=== PATIENT | female | born 1985 | race Caucasian/White ===

== ENCOUNTER → 2017-01-15 | Outpatient (REF) | payer OTHER | LOC: M LAB REF 10:22 | PROVIDERS: ATTEND Physician Assistant | DX: R30.0 Dysuria (principal) ==

== ENCOUNTER 2017-07-06 11:43 | Emergency (ER) | payer OTHER ==
[2017-07-06] MEDS: predniSONE 20 MG TAB PO (14:08)
== END 2017-07-06 14:15 | disposition home or self-care (01) ==
LOC: M ED 11:43
DX: M25.50 Pain in unspecified joint (principal); M06.9 Rheumatoid arthritis, unspecified; L94.9 Localized connective tissue disorder, unspecified; F17.200 Nicotine dependence, unspecified, uncomplicated; J30.1 Allergic rhinitis due to pollen; J30.89 Other allergic rhinitis
CPT/HCPCS: 99283

== ENCOUNTER 2017-08-19 17:06 | Emergency (ER) | payer OTHER, SELFPAY ==
[2017-08-19] MEDS: AUGMENTIN 875 MG TAB PO ×2 (17:35)
[2017-08-19] MEDS: ADACEL/BOOSTRIX VACCINE (DIPHTH/PERTUSS/ACELL/TETANUS)0.5ML SYR (90715) IM ×2 (17:44)
== END 2017-08-19 17:57 | disposition home or self-care (01) ==
LOC: M ED 17:06
DX: S90.871A Other superficial bite of right foot, initial encounter (principal); W54.0XXA Bitten by dog, initial encounter; Y92.009 Unspecified place in unspecified non-institutional (private) residence as the place of occurrence of the external cause; F17.210 Nicotine dependence, cigarettes, uncomplicated; Z91.048 Other nonmedicinal substance allergy status
CPT/HCPCS: 90715

== ENCOUNTER 2017-09-14 06:23 | Emergency (ER) | payer MEDICAID, SELFPAY, OTHER ==
[2017-09-14] MEDS: KETOROLAC 60 MG/2 ML VIAL (J1885) IM ×2 (07:06)
== END 2017-09-14 07:29 | disposition home or self-care (01) ==
LOC: M ED 06:23
DX: M25.50 Pain in unspecified joint (principal); J30.2 Other seasonal allergic rhinitis; M06.9 Rheumatoid arthritis, unspecified; J30.89 Other allergic rhinitis; Z72.0 Tobacco use
CPT/HCPCS: J1885

== ENCOUNTER → 2017-10-17 | Outpatient (REF) | payer MEDICAID, SELFPAY ==
[2017-10-17 18:36] LABS: BASO # 0.1 10^3/uL (0.0-0.2); BASO % 0.8 % (0.0-1.0); EOS # 0.2 10^3/uL (0.0-0.50); EOS % 2.1 % (0.0-3.0); HEMATOCRIT 43.1 % (36.0-47.0); HEMOGLOBIN 14.2 g/dl (12.0-15.5); IMMATURE GRANULOCYTE % 0.2 % (0-3.0); LYMPH # 2.4 10^3/uL (1.5-4.5); LYMPH % 29.3 % (24.0-44.0); MEAN CORPUSCULAR HEMOGLOBIN 29.8 pg (27.0-33.0); MEAN CORPUSCULAR HGB CONC 32.9 g/dl (32.0-36.5); MEAN CORPUSCULAR VOLUME 90.5 fl (80.0-96.0); MONO # 0.6 10^3/uL (0.0-0.8); MONO % 7.1 % (0.0-5.0); NEUTROPHILS % 60.5 % (36.0-66.0); PLATELET COUNT, AUTOMATED 292 10^3/uL (150-450); RED BLOOD COUNT 4.76 10^6/uL (4.00-5.40); RED CELL DISTRIBUTION WIDTH 13.4 % (11.5-14.5); WHITE BLOOD COUNT 8.3 10^3/uL (4.0-10.0)
[2017-10-17 18:52] LABS: ALBUMIN/GLOBULIN RATIO 1.08 (1.00-1.93); ALKALINE PHOSPHATASE 64 U/L (45-117); ALT/SGPT 23 U/L (12-78); ANION GAP 5 MEQ/L (8-16); AST/SGOT 10 U/L (7-37); BILIRUBIN,TOTAL 1.2 MG/DL (0.2-1.0); BLOOD UREA NITROGEN 8 MG/DL (7-18); C REACTIVE PROTEIN QUANTITATIV 1.17 MG/DL (0.00-0.30); CALCIUM LEVEL 8.6 MG/DL (8.5-10.1); CARBON DIOXIDE LEVEL 30 MEQ/L (21-32); CHLORIDE LEVEL 105 MEQ/L (98-107); CREATININE FOR GFR 0.98 MG/DL (0.55-1.30); GLOMERULAR FILTRATION RATE > 60.0 (>60); GLUCOSE, FASTING 88 MG/DL (70-100); POTASSIUM SERUM 4.1 MEQ/L (3.5-5.1); SODIUM LEVEL 140 MEQ/L (136-145); TOTAL PROTEIN 7.7 GM/DL (6.4-8.2)
[2017-10-17 20:48] LABS: ERYTHROCYTE SEDIMENTATION RATE 10 mm/hr (0-20)
== END ==
LOC: M LAB REF 10:15
DX: M06.049 Rheumatoid arthritis without rheumatoid factor, unspecified hand (principal)
CPT/HCPCS: 84443

== ENCOUNTER 2017-11-27 13:53 | Emergency (ER) | payer OTHER, MEDICAID ==
[2017-11-27] MEDS: NS 1,000 ML IV (15:36)
[2017-11-27] MEDS: methylPREDNISolone INJ 125 MG/2 ML VIAL (J2930) IV (15:36)
[2017-11-27] MEDS: KETOROLAC 30 MG/ML VIAL (J1885) IV (15:37)
[2017-11-27] MEDS: MORPHINE 4 MG/ML 1ML VIAL/SYRINGE (J2270) IV (16:39)
== END 2017-11-27 17:55 | disposition home or self-care (01) ==
LOC: M ED 13:53
DX: M25.551 Pain in right hip (principal); M25.552 Pain in left hip; M25.561 Pain in right knee; M25.562 Pain in left knee; F17.200 Nicotine dependence, unspecified, uncomplicated; M06.9 Rheumatoid arthritis, unspecified
CPT/HCPCS: J2270

== ENCOUNTER 2017-11-29 20:49 | Emergency (ER) | payer OTHER ==
[2017-11-29 21:18] LABS: CONTROL LINE UCG INT CTR LINE PRESENT; URINE PREG TEST NEGATIVE (NEGATIVE)
[2017-11-29 21:27] LABS: KETONE, URINE AUTO RFX NEGATIVE (NEGATIVE); MUCUS, URINE RFX SMALL (NEGATIVE); NITRITE, URINE AUTO RFX NEGATIVE (NEGATIVE); RBC, URINE AUTO RFX 68 /HPF (0-3); SPECIFIC GRAVITY UR AUTO RFX 1.019 (1.002-1.035); SQUAM EPITHELIAL CELL UR AURFX 3 /HPF (0-6)
[2017-11-29] MEDS: NORCO, ANEXSIA 5/325MG TABLET (HYDROcodone/ACETAMINOPHEN) PO (21:27)
[2017-11-29 21:31] LABS: LEUKOCYTE ESTERASE UR AUTO RFX 3+ (NEGATIVE); WBC, URINE AUTO RFX TNTC /HPF (0-3)
[2017-11-29] MEDS: CIPROFLOXACIN 500 MG TAB PO (22:14)
[2017-11-29] MEDS: PHENAZOPYRIDINE 100 MG TAB PO (22:14)
[2017-11-29 23:13] LABS: CHLAMYDIA DNA AMPLIFICATION NEGATIVE (NEGATIVE); GC DNA AMPLIFICATION NEGATIVE (NEGATIVE)
== END 2017-11-29 22:29 | disposition home or self-care (01) ==
LOC: M ED 20:49
DX: N30.00 Acute cystitis without hematuria (principal); F31.9 Bipolar disorder, unspecified; M06.9 Rheumatoid arthritis, unspecified; F17.210 Nicotine dependence, cigarettes, uncomplicated; Z98.890 Other specified postprocedural states; Z91.048 Other nonmedicinal substance allergy status; Z79.899 Other long term (current) drug therapy
CPT/HCPCS: 84703

== ENCOUNTER 2018-03-01 13:31 | Emergency (ER) | payer OTHER ==
[2018-03-01] MEDS: NORCO, ANEXSIA 5/325MG TABLET (HYDROcodone/ACETAMINOPHEN) PO ×2 (14:00→16:09)
[2018-03-01] MEDS: NAPROXEN 250 MG TAB PO (14:01)
[2018-03-01 14:20] LABS: BASO # 0.1 10^3/uL (0.0-0.2); BASO % 0.8 % (0.0-1.0); EOS # 0.2 10^3/uL (0.0-0.50); EOS % 1.6 % (0.0-3.0); HEMATOCRIT 47.2 % (36.0-47.0); HEMOGLOBIN 15.6 g/dl (12.0-15.5); IMMATURE GRANULOCYTE % 0.2 % (0-3.0); LYMPH # 2.7 10^3/uL (1.5-4.5); LYMPH % 25.9 % (24.0-44.0); MEAN CORPUSCULAR HEMOGLOBIN 29.1 pg (27.0-33.0); MEAN CORPUSCULAR HGB CONC 33.1 g/dl (32.0-36.5); MEAN CORPUSCULAR VOLUME 87.9 fl (80.0-96.0); MONO # 0.6 10^3/uL (0.0-0.8); MONO % 5.6 % (0.0-5.0); NEUTROPHILS # 6.9 10^3/uL (1.8-7.7); NEUTROPHILS % 65.9 % (36.0-66.0); RED BLOOD COUNT 5.37 10^6/uL (4.00-5.40); RED CELL DISTRIBUTION WIDTH 13.4 % (11.5-14.5); WHITE BLOOD COUNT 10.5 10^3/uL (4.0-10.0)
[2018-03-01 14:41] LABS: ERYTHROCYTE SEDIMENTATION RATE 6 mm/hr (0-20)
[2018-03-01 14:57] LABS: ANION GAP 7 MEQ/L (8-16); BLOOD UREA NITROGEN 10 MG/DL (7-18); C REACTIVE PROTEIN QUANTITATIV 0.48 MG/DL (0.00-0.30); CARBON DIOXIDE LEVEL 26 MEQ/L (21-32); CHLORIDE LEVEL 103 MEQ/L (98-107); GLOMERULAR FILTRATION RATE > 60.0 (>60); GLUCOSE, FASTING 125 MG/DL (70-100); POTASSIUM SERUM 4.1 MEQ/L (3.5-5.1); SODIUM LEVEL 136 MEQ/L (136-145); URIC ACID 5.9 MG/DL (2.6-6.0)
[2018-03-01 14:59] LABS: PLATELET COUNT, AUTOMATED 377 10^3/uL (150-450); POS COUNT POS FLAG
== END 2018-03-01 16:14 | disposition home or self-care (01) ==
LOC: M ED 13:31
DX: M25.462 Effusion, left knee (principal)
CPT/HCPCS: 93971

== ENCOUNTER → 2018-08-25 | Outpatient (CLI) | payer MEDICAID ==
[~2018-08-25] MED LIST: ARIP1TAB6; AUGM875T28 PO; CIPR-249 PO; DULO1CAP2; IBUP-1022 PO; IBUP-1114 PO; IBUP80TA PO; LIDO5DIS41 TD; NAPR-837 PO; PRED10TA2 PO; PRED20TA PO; PYRI1TAB5 PO; VENTAER IN; ZYPR5TAB2 PO; [UNRECOGNIZED DRUG - REMARK] PO
== END ==
LOC: M OUTALCOH 08:31
PROVIDERS: ATTEND Psychiatry & Neurology Psychiatry
DX: F11.20 Opioid dependence, uncomplicated (principal)

== ENCOUNTER → 2018-08-25 | Outpatient (CLI) | payer OTHER ==
[2018-08-25 09:33] LABS: BASO # 0.1 10^3/uL (0.0-0.2); BASO % 0.9 % (0.0-1.0); EOS # 0.2 10^3/uL (0.0-0.50); EOS % 2.9 % (0.0-3.0); HEMATOCRIT 43.4 % (36.0-47.0); HEMOGLOBIN 13.6 g/dl (12.0-15.5); LYMPH % 24.7 % (24.0-44.0); MEAN CORPUSCULAR HEMOGLOBIN 28.7 pg (27.0-33.0); MEAN CORPUSCULAR HGB CONC 31.3 g/dl (32.0-36.5); MEAN CORPUSCULAR VOLUME 91.6 fl (80.0-96.0); MONO # 0.5 10^3/uL (0.0-0.8); MONO % 5.6 % (0.0-5.0); NEUTROPHILS # 5.4 10^3/uL (1.8-7.7); NEUTROPHILS % 65.8 % (36.0-66.0); PLATELET COUNT, AUTOMATED 315 10^3/uL (150-450); RED BLOOD COUNT 4.74 10^6/uL (4.00-5.40); WHITE BLOOD COUNT 8.2 10^3/uL (4.0-10.0)
[2018-08-25 09:53] LABS: ALBUMIN 3.8 GM/DL (3.2-5.2); ALT/SGPT 17 U/L (12-78); BILIRUBIN,TOTAL 0.9 MG/DL (0.2-1.0); BLOOD UREA NITROGEN 12 MG/DL (7-18); C REACTIVE PROTEIN QUANTITATIV 0.35 MG/DL (0.00-0.30); CARBON DIOXIDE LEVEL 28 MEQ/L (21-32); CHLORIDE LEVEL 102 MEQ/L (98-107); CREATININE FOR GFR 0.93 MG/DL (0.55-1.30); GLOMERULAR FILTRATION RATE > 60.0 (>60); GLUCOSE, FASTING 105 MG/DL (70-100); POTASSIUM SERUM 4.2 MEQ/L (3.5-5.1); SODIUM LEVEL 137 MEQ/L (136-145); TOTAL PROTEIN 7.1 GM/DL (6.4-8.2); URIC ACID 5.6 MG/DL (2.6-6.0)
[2018-08-25 09:56] LABS: ERYTHROCYTE SEDIMENTATION RATE 8 mm/hr (0-20)
--- NOTE | 2018-08-26 11:48 | REP ---
Clinical: Knee pain. Technique: AP weightbearing view of the right and left knee. Findings: Very minimal medial joint space narrowing is noted bilaterally with subtle spurring along the medial tibial plateaus. Remainder examination is normal for age. Impression: Cannot exclude very subtle medial joint space narrowing (left greater than right). Electronically Signed by Nirav Shaikh MD 08/26/2018 11:19 A
--- NOTE | 2018-08-26 11:49 | REP ---
Clinical: Left knee pain. Technique: AP, lateral, bilateral oblique and sunrise views of the left knee. Findings: Essentially age-appropriate examination is appreciated. Very subtle cortical irregularity along the femoral condyles identified with subtle early spurring along the lateral patellar margin on sunrise view noted. No acute fracture dislocation. No significant overt arthritic changes are appreciated. No effusion. Impression: Relatively generalized age-related changes. Electronically Signed by Nirav Shaikh MD 08/26/2018 11:20 A
[2018-08-27 00:06] LABS: ANA (HEP2) Positive (.); CYCLIC CITRULLINATED PEPTIDE > 250 units (0-19); Lyme Disease IgG/IgM Antibodie <0.91 ISR (0.00-0.90); Lyme Disease IgM Ab Quantitati <0.80 index (0.00-0.79)
== END ==
LOC: M LAB 08:42
PROVIDERS: ATTEND Internal Medicine Rheumatology
DX: M25.562 Pain in left knee (principal); M06.00 Rheumatoid arthritis without rheumatoid factor, unspecified site

== ENCOUNTER 2018-08-28 16:31 | Emergency (ER) | payer OTHER ==
[~2018-08-28] VITALS: Ht 167.6 cm; Wt 88.6 kg
[~2018-08-28 16:31] MED LIST changes: -ARIP1TAB6; -DULO1CAP2; -LIDO5DIS41 TD
[2018-08-28 16:32] VITALS: BP 115/67
[2018-08-28] MEDS ORDERED: ARIP1TAB6 (16:45)
[2018-08-28] MEDS ORDERED: DULO1CAP2 (16:45)
--- NOTE | 2018-08-28 17:33 | REP ---
Clinical: Pain and swelling. Technique: AP, lateral, bilateral oblique and sunrise views right knee . Findings: The osseous structures and joint spaces are intact and normal. There is no evidence for acute fracture or dislocation. No joint effusion is appreciated. Surrounding soft tissues are unremarkable. No subcutaneous emphysema or radiodense foreign body. Impression: Normal examination. No acute fracture or dislocation. Electronically Signed by Nirav Shaikh MD 08/28/2018 05:25 P
[2018-08-28] MEDS ORDERED: LIDO5DIS41 TD (17:42)
[2018-08-28] MEDS ORDERED: LIDOCAINE 5% (LIDODERM) PATCH TD ONE (17:45)
[2018-08-28] MEDS ORDERED: **NOTE PATIENT COMMENT** MISC XX SCH (21:00)
== END 2018-08-28 18:06 | disposition home or self-care (01) ==
LOC: M ED 16:31
DX: M25.561 Pain in right knee (principal); Z79.899 Other long term (current) drug therapy; Z88.0 Allergy status to penicillin; Z88.5 Allergy status to narcotic agent; Z88.8 Allergy status to other drugs, medicaments and biological substances; F17.210 Nicotine dependence, cigarettes, uncomplicated

== ENCOUNTER 2018-09-02 13:43 | Outpatient (RCR) | payer MEDICAID ==
[~2018-09-02 13:43] MED LIST changes: +ARIP1TAB6; +DULO1CAP2; +LIDO5DIS41 TD
== END 2018-09-04 ==
LOC: M OUTALCOH 13:43
PROVIDERS: ATTEND Psychiatry & Neurology Psychiatry
DX: F11.20 Opioid dependence, uncomplicated (principal); F15.20 Other stimulant dependence, uncomplicated; F17.200 Nicotine dependence, unspecified, uncomplicated

== ENCOUNTER 2018-09-14 08:45 | Outpatient (RCR) | payer MEDICAID ==
[2018-09-26] MEDS ORDERED: METH2.5T48 PO (20:26)
[2018-09-26] MEDS ORDERED: FOLI1TAB11 PO (20:58)
[2018-09-26] MEDS ORDERED: MEDR4PAK PO (21:27)
== END 2018-10-04 ==
LOC: M OUTALCOH 08:45
PROVIDERS: ATTEND Psychiatry & Neurology Psychiatry
DX: F11.20 Opioid dependence, uncomplicated (principal); F15.20 Other stimulant dependence, uncomplicated; F17.200 Nicotine dependence, unspecified, uncomplicated

== ENCOUNTER 2018-09-26 20:21 | Emergency (ER) | payer MEDICAID, OTHER ==
[~2018-09-26] VITALS: Ht 167.6 cm; Wt 88.6 kg
[2018-09-26 20:22] VITALS: BP 119/58
[2018-09-26] MEDS ORDERED: METH2.5T48 PO (20:26)
[2018-09-26] MEDS ORDERED: FOLI1TAB11 PO (20:58)
[2018-09-26] MEDS ORDERED: MEDR4PAK PO (21:27)
[2018-09-26] MEDS ORDERED: predniSONE 20 MG TAB PO ONE (21:30)
== END 2018-09-26 21:41 | disposition home or self-care (01) ==
LOC: M ED 20:21
DX: M05.66 Rheumatoid arthritis of knee with involvement of other organs and systems (principal); M25.461 Effusion, right knee; Z88.0 Allergy status to penicillin; Z88.5 Allergy status to narcotic agent; Z88.8 Allergy status to other drugs, medicaments and biological substances; J30.89 Other allergic rhinitis; F17.210 Nicotine dependence, cigarettes, uncomplicated

== ENCOUNTER → 2018-10-05 | Outpatient (CLI) | payer OTHER ==
[~2018-10-05] MED LIST changes: -DULO1CAP2; +DULO1CAP5; +FOLI1TAB11 PO; +MEDR4PAK PO; +METH2.5T48 PO
[2018-10-05 12:18] LABS: BASO % 0.7 % (0.0-1.0); EOS # 0.2 10^3/uL (0.0-0.50); EOS % 2.8 % (0.0-3.0); HEMATOCRIT 43.7 % (36.0-47.0); HEMOGLOBIN 13.9 g/dl (12.0-15.5); LYMPH # 2.2 10^3/uL (1.5-4.5); LYMPH % 37.2 % (24.0-44.0); MEAN CORPUSCULAR HGB CONC 31.8 g/dl (32.0-36.5); MEAN CORPUSCULAR VOLUME 94.2 fl (80.0-96.0); MONO # 0.4 10^3/uL (0.0-0.8); MONO % 7.3 % (0.0-5.0); NEUTROPHILS # 3.1 10^3/uL (1.8-7.7); NEUTROPHILS % 51.8 % (36.0-66.0); PLATELET COUNT, AUTOMATED 297 10^3/uL (150-450); RED BLOOD COUNT 4.64 10^6/uL (4.00-5.40)
[2018-10-05 12:44] LABS: ALBUMIN 3.8 GM/DL (3.2-5.2); BILIRUBIN,TOTAL 1.1 MG/DL (0.2-1.0); C REACTIVE PROTEIN QUANTITATIV 0.6 MG/DL (0.00-0.30); CALCIUM LEVEL 8.8 MG/DL (8.5-10.1); CREATININE FOR GFR 1.15 MG/DL (0.55-1.30); GLOMERULAR FILTRATION RATE 58.2 (>60); POTASSIUM SERUM 4.8 MEQ/L (3.5-5.1); TOTAL PROTEIN 7.5 GM/DL (6.4-8.2)
[2018-10-05 12:48] LABS: ERYTHROCYTE SEDIMENTATION RATE 9 mm/hr (0-20)
[2018-10-08 00:06] LABS: ANA (HEP2) Negative (.); CYCLIC CITRULLINATED PEPTIDE > 250 units (0-19); Lyme Disease IgG/IgM Antibodie <0.91 ISR (0.00-0.90); Lyme Disease IgM Ab Quantitati <0.80 index (0.00-0.79)
== END ==
LOC: M LAB 11:44
PROVIDERS: ATTEND Internal Medicine Rheumatology
DX: M06.00 Rheumatoid arthritis without rheumatoid factor, unspecified site (principal); M25.562 Pain in left knee

== ENCOUNTER → 2018-11-11 | Outpatient (CLI) | payer OTHER ==
[~2018-11-11] MED LIST changes: +DULO1CAP5 PO; +DULO30CA9 PO; +LEVO50TA5; +SYNT50TA PO; +VITA1CAP25 PO
[2018-11-11 13:05] LABS: BASO # 0.1 10^3/uL (0.0-0.2); EOS # 0.2 10^3/uL (0.0-0.50); EOS % 2.2 % (0.0-3.0); HEMATOCRIT 41.6 % (36.0-47.0); HEMOGLOBIN 13.5 g/dl (12.0-15.5); LYMPH # 2.8 10^3/uL (1.5-4.5); LYMPH % 41.2 % (24.0-44.0); MEAN CORPUSCULAR HEMOGLOBIN 29.9 pg (27.0-33.0); MEAN CORPUSCULAR HGB CONC 32.5 g/dl (32.0-36.5); MONO # 0.5 10^3/uL (0.0-0.8); MONO % 7.3 % (0.0-5.0); NEUTROPHILS # 3.3 10^3/uL (1.8-7.7); NEUTROPHILS % 48.2 % (36.0-66.0); PLATELET COUNT, AUTOMATED 297 10^3/uL (150-450); RED BLOOD COUNT 4.52 10^6/uL (4.00-5.40); WHITE BLOOD COUNT 6.8 10^3/uL (4.0-10.0)
[2018-11-11 13:34] LABS: ALBUMIN 3.9 GM/DL (3.2-5.2); ALT/SGPT 16 U/L (12-78); BILIRUBIN,TOTAL 0.9 MG/DL (0.2-1.0); BLOOD UREA NITROGEN 12 MG/DL (7-18); C REACTIVE PROTEIN QUANTITATIV < 0.30 MG/DL (0.00-0.30); CALCIUM LEVEL 9.4 MG/DL (8.5-10.1); CARBON DIOXIDE LEVEL 27 MEQ/L (21-32); CHLORIDE LEVEL 106 MEQ/L (98-107); CREATININE FOR GFR 0.97 MG/DL (0.55-1.30); GLOMERULAR FILTRATION RATE > 60.0 (>60); GLUCOSE, FASTING 72 MG/DL (70-100); POTASSIUM SERUM 4.7 MEQ/L (3.5-5.1); SODIUM LEVEL 138 MEQ/L (136-145); TOTAL PROTEIN 7.3 GM/DL (6.4-8.2)
[2018-11-11 13:41] LABS: ERYTHROCYTE SEDIMENTATION RATE 7 mm/hr (0-20)
[2018-11-11 13:42] LABS: HEPATITIS B SURFACE ANTIBODY POSITIVE (POSITIVE)
[2018-11-11 13:52] LABS: HEPATITIS B SURFACE ANTIGEN NEGATIVE (NEGATIVE)
[2018-11-11 14:21] LABS: HEPATITIS C VIRUS ABY INDEX 0.1 INDEX (<0.8)
[2018-11-15 12:06] LABS: HEPATITIS B CORE ANTIBODY IGG Negative (Negative)
== END ==
LOC: M LAB 12:05
PROVIDERS: ATTEND Internal Medicine Rheumatology
DX: M05.79 Rheumatoid arthritis with rheumatoid factor of multiple sites without organ or systems involvement (principal); Z79.899 Other long term (current) drug therapy

== ENCOUNTER → 2018-12-29 | Outpatient (REF) | payer OTHER, MEDICAID ==
[~2018-12-29] MED LIST changes: -DULO1CAP5 PO; -DULO30CA9 PO; -LEVO50TA5; -SYNT50TA PO; -VITA1CAP25 PO
[2018-12-29 20:41] LABS: APPEARANCE, URINE HAZY (CLEAR); BACTERIA, URINE AUTO NEGATIVE (NEGATIVE); BILIRUBIN, URINE AUTO NEGATIVE (NEGATIVE); BLOOD, URINE BLOOD NEGATIVE (NEGATIVE); COLOR, URINE YELLOW (YELLOW); GLUCOSE, URINE (UA) AUTO NEGATIVE (NEGATIVE); KETONE, URINE AUTO NEGATIVE (NEGATIVE); LEUKOCYTE ESTERASE, URINE AUTO NEGATIVE (NEGATIVE); MUCUS, URINE SMALL (NEGATIVE); NITRITE, URINE AUTO NEGATIVE (NEGATIVE); PROTEIN, URINE AUTO NEGATIVE (NEGATIVE); RBC, URINE AUTO 1 /HPF (0-3); SPECIFIC GRAVITY URINE AUTO 1.005 (1.002-1.035); SQUAMOUS EPITHELIAL CELL UR AU 3 /HPF (0-6); UROBILINOGEN, URINE AUTO 0.2 mg/dL (0.0-2.0); WBC, URINE AUTO 0 /HPF (0-3)
== END ==
LOC: M LAB REF 19:44
PROVIDERS: ATTEND Family Medicine Addiction Medicine
DX: Z13.9 Encounter for screening, unspecified (principal)

== ENCOUNTER → 2018-12-29 | Outpatient (REF) | payer OTHER, MEDICAID ==
[2018-12-29 18:32] LABS: BASO % 0.3 % (0.0-1.0); EOS # 0.3 10^3/uL (0.0-0.5); EOS % 4.4 % (0.0-3.0); HEMOGLOBIN 14.9 g/dl (12.0-15.5); LYMPH # 2.1 10^3/uL (1.5-5.0); LYMPH % 32.5 % (24.0-44.0); MEAN CORPUSCULAR HEMOGLOBIN 30.9 pg (27.0-33.0); MEAN CORPUSCULAR HGB CONC 33.1 g/dl (32.0-36.5); MEAN CORPUSCULAR VOLUME 93.4 fl (80.0-96.0); MONO # 0.5 10^3/uL (0.0-0.8); NEUTROPHILS # 3.5 10^3/uL (1.5-8.5); NEUTROPHILS % 54.3 % (36.0-66.0); PLATELET COUNT, AUTOMATED 352 10^3/uL (150-450); RED BLOOD COUNT 4.82 10^6/uL (4.00-5.40); WHITE BLOOD COUNT 6.4 10^3/uL (4.0-10.0)
[2018-12-29 18:42] LABS: ALBUMIN 4.2 GM/DL (3.2-5.2); ALT/SGPT 16 U/L (12-78); BILIRUBIN,TOTAL 1.1 MG/DL (0.2-1.0); BLOOD UREA NITROGEN 8 MG/DL (7-18); CALCIUM LEVEL 9.2 MG/DL (8.5-10.1); CARBON DIOXIDE LEVEL 25 MEQ/L (21-32); CHLORIDE LEVEL 105 MEQ/L (98-107); CHOLESTEROL LEVEL 129 MG/DL (<200); CHOLESTEROL RISK RATIO 3.225 (<5); CREATININE FOR GFR 0.92 MG/DL (0.55-1.30); FREE T4 1.22 NG/DL (0.76-1.46); GLOMERULAR FILTRATION RATE > 60.0 (>60); GLUCOSE, FASTING 90 MG/DL (70-100); HDL CHOLESTEROL 40 MG/DL (>40); LDL CHOLESTEROL 60 MG/DL (<100); NON-HDL-C 89 MG/DL; POTASSIUM SERUM 4.5 MEQ/L (3.5-5.1); SODIUM LEVEL 139 MEQ/L (136-145); TOTAL PROTEIN 8.1 GM/DL (6.4-8.2); TRIGLYCERIDES LEVEL 144 MG/DL (<150)
[2018-12-29 18:46] LABS: TOTAL 25(OH) VITAMIN D 19.8 NG/ML (30.0-100.0)
[2018-12-29 19:06] LABS: HEMOGLOBIN A1c 5.1 %
== END ==
LOC: M LAB REF 18:15
PROVIDERS: ATTEND Nurse Practitioner Family
DX: Z13.9 Encounter for screening, unspecified (principal)

== ENCOUNTER 2019-02-01 17:48 | Emergency (ER) | payer MEDICAID, OTHER ==
[~2019-02-01] VITALS: Ht 167.6 cm; Wt 104.5 kg
[2019-02-01 19:08] LABS: HEMATOCRIT 44.4 % (36.0-47.0); HEMOGLOBIN 14.6 g/dl (12.0-15.5); MEAN CORPUSCULAR HEMOGLOBIN 30.2 pg (27.0-33.0); MEAN CORPUSCULAR HGB CONC 32.9 g/dl (32.0-36.5); MEAN CORPUSCULAR VOLUME 91.7 fl (80.0-96.0); PLATELET COUNT, AUTOMATED 335 10^3/uL (150-450); RED BLOOD COUNT 4.84 10^6/uL (4.00-5.40); WHITE BLOOD COUNT 9.7 10^3/uL (4.0-10.0)
[2019-02-01] MEDS ORDERED: DULO1CAP5 PO (19:10)
[2019-02-01] MEDS ORDERED: LEVO50TA5 (19:10)
[2019-02-01 19:29] LABS: AMPHETAMINES LEVEL URINE NEGATIVE (NEGATIVE); BARBITURATES URINE NEGATIVE (NEGATIVE); BENZODIAZEPINES URINE NEGATIVE (NEGATIVE); CANNABINOIDS URINE POSITIVE (NEGATIVE); COCAINE METABOLITE URINE NEGATIVE (NEGATIVE); METHADONE URINE NEGATIVE (NEGATIVE); OPIATES URINE NEGATIVE (NEGATIVE); PHENCYCLIDINE URINE NEGATIVE (NEGATIVE)
[2019-02-01 19:30] LABS: HCG, SERUM QUALITATIVE NEGATIVE (NEGATIVE)
[2019-02-01 19:40] LABS: ACETAMINOPHEN LEVEL < 2.0 UG/ML (10.0-30.0); ALBUMIN 3.8 GM/DL (3.2-5.2); ALT/SGPT 22 U/L (12-78); BILIRUBIN,DIRECT 0.1 MG/DL (0.0-0.2); BILIRUBIN,TOTAL 0.5 MG/DL (0.2-1.0); BLOOD UREA NITROGEN 8 MG/DL (7-18); CALCIUM LEVEL 8.8 MG/DL (8.5-10.1); CARBON DIOXIDE LEVEL 28 MEQ/L (21-32); CHLORIDE LEVEL 107 MEQ/L (98-107); CREATININE FOR GFR 1.01 MG/DL (0.55-1.30); ETHYL ALCOHOL (ETHANOL) < 0.003 % (0.000-0.010); GLOMERULAR FILTRATION RATE > 60.0 (>60); GLUCOSE, FASTING 95 MG/DL (70-100); SALICYLATE LEVEL 2.4 MG/DL (5.0-30.0); SODIUM LEVEL 140 MEQ/L (136-145); TOTAL PROTEIN 7.5 GM/DL (6.4-8.2)
[2019-02-01] MEDS ORDERED: VITA1CAP25 PO (21:12)
[2019-02-01] MEDS ORDERED: SYNT50TA PO (21:12)
[2019-02-01] MEDS ORDERED: DULO30CA9 PO (21:12)
[2019-02-01] MEDS ORDERED: METH2.5T48 PO (21:12)
[2019-02-01] MEDS ORDERED: FOLI1TAB11 PO (21:12)
[2019-02-01 21:54] VITALS: BP 134/76
== END 2019-02-01 21:55 | disposition home or self-care (01) ==
LOC: M ED 17:48
DX: F32.9 Major depressive disorder, single episode, unspecified (principal); M06.9 Rheumatoid arthritis, unspecified; Z86.59 Personal history of other mental and behavioral disorders; Z90.89 Acquired absence of other organs; Z79.899 Other long term (current) drug therapy; Z88.5 Allergy status to narcotic agent; Z88.8 Allergy status to other drugs, medicaments and biological substances; Z91.09 Other allergy status, other than to drugs and biological substances
CPT/HCPCS: 36415; 80048; 80076; 80307; 84443; 84703; 85027; 99284; G0480

== ENCOUNTER → 2019-02-17 | Outpatient (CLI) | payer OTHER ==
[~2019-02-17] MED LIST changes: +DULO1CAP5 PO; +DULO30CA9 PO; +LEVO50TA5; +SYNT50TA PO; +VITA1CAP25 PO
== END ==
LOC: M OUTALCOH 08:44
PROVIDERS: ATTEND Psychiatry & Neurology Psychiatry
DX: F12.20 Cannabis dependence, uncomplicated (principal)

== ENCOUNTER → 2019-04-28 | Outpatient (CLI) | payer OTHER | LOC: M OUTALCOH 12:28 | PROVIDERS: ATTEND Psychiatry & Neurology Addiction Medicine | DX: F12.20 Cannabis dependence, uncomplicated (principal) ==

== ENCOUNTER 2019-06-02 08:45 | Outpatient (RCR) | payer OTHER | END 2019-06-05 | LOC: M OUTALCOH 08:45 | PROVIDERS: ATTEND Psychiatry & Neurology Addiction Medicine | DX: F15.10 Other stimulant abuse, uncomplicated (principal) ==

== ENCOUNTER 2019-06-09 08:45 | Outpatient (RCR) | payer OTHER | END 2019-07-06 | LOC: M OUTALCOH 08:45 | PROVIDERS: ATTEND Psychiatry & Neurology Addiction Medicine | DX: F15.10 Other stimulant abuse, uncomplicated (principal) ==

== ENCOUNTER 2019-11-06 18:28 | Emergency (ER) | payer OTHER ==
[2019-11-06] MEDS ORDERED: KETOROLAC 30 MG/ML 1ML VIAL ONE (21:54)
[2019-11-06] MEDS ORDERED: ACETAMINOPHEN 500 MG TAB ONE (21:54)
[2019-11-06] MEDS ORDERED: CEPHALEXIN 500 MG CAP ONE (21:54)
[2019-12-12 21:36] LABS: BASO # 0.1 10^3/uL (0.0-0.2); BASO % 0.6 % (0.0-1.0); EOS # 0.3 10^3/uL (0.0-0.5); EOS % 2.6 % (0.0-3.0); HEMATOCRIT 44.8 % (36.0-47.0); HEMOGLOBIN 14.7 g/dl (12.0-15.5); LYMPH # 2.3 10^3/uL (1.5-5.0); LYMPH % 22.7 % (24.0-44.0); MEAN CORPUSCULAR HEMOGLOBIN 30.4 pg (27.0-33.0); MEAN CORPUSCULAR HGB CONC 32.8 g/dl (32.0-36.5); MEAN CORPUSCULAR VOLUME 92.8 fl (80.0-96.0); MONO # 0.7 10^3/uL (0.0-0.8); MONO % 7.1 % (0.0-5.0); NEUTROPHILS # 6.9 10^3/uL (1.5-8.5); NEUTROPHILS % 66.8 % (36.0-66.0); PLATELET COUNT, AUTOMATED 295 10^3/uL (150-450); RED BLOOD COUNT 4.83 10^6/uL (4.00-5.40); WHITE BLOOD COUNT 10.3 10^3/uL (4.0-10.0)
[2020-01-16 14:02] LABS: BLOOD UREA NITROGEN 11 MG/DL (7-18); CALCIUM LEVEL 8.8 MG/DL (8.5-10.1); CARBON DIOXIDE LEVEL 28 MEQ/L (21-32); CHLORIDE LEVEL 107 MEQ/L (98-107); CREATININE FOR GFR 0.81 MG/DL (0.55-1.30); GLOMERULAR FILTRATION RATE > 60.0 (>60); GLUCOSE, FASTING 91 MG/DL (70-100); POTASSIUM SERUM 4.2 MEQ/L (3.5-5.1); SODIUM LEVEL 138 MEQ/L (136-145)
== END 2019-11-06 22:20 | disposition home or self-care (01) ==
LOC: M ED 18:28
DX: L03.112 Cellulitis of left axilla (principal); S90.32XA Contusion of left foot, initial encounter; M79.89 Other specified soft tissue disorders; W22.8XXA Striking against or struck by other objects, initial encounter; Y92.098 Other place in other non-institutional residence as the place of occurrence of the external cause; R60.0 Localized edema
CPT/HCPCS: 36415; 73610; 73630; 80048; 85025; 96372; 99283; J1885

== ENCOUNTER 2020-01-03 10:56 | Inpatient (IN) | payer OTHER ==
[~2020-01-03] VITALS: Ht 170.2 cm; Wt 107.7 kg
[2020-01-03] MEDS ORDERED: SULF1TAB93 PO (11:07)
[2020-01-03] MEDS ORDERED: HYDR-3713 PO (11:07)
[2020-01-03] MEDS ORDERED: PRED20TA PO (11:07)
[2020-01-03 12:11] LABS: BASO # 0.1 10^3/uL (0.0-0.2); BASO % 0.4 % (0.0-1.0); EOS % 0.1 % (0.0-3.0); HEMATOCRIT 45.4 % (36.0-47.0); HEMOGLOBIN 14.9 g/dl (12.0-15.5); LYMPH % 16.1 % (24.0-44.0); MEAN CORPUSCULAR HEMOGLOBIN 29.4 pg (27.0-33.0); MEAN CORPUSCULAR HGB CONC 32.8 g/dl (32.0-36.5); MEAN CORPUSCULAR VOLUME 89.7 fl (80.0-96.0); MONO # 0.6 10^3/uL (0.0-0.8); MONO % 4.8 % (0.0-5.0); NEUTROPHILS # 9.8 10^3/uL (1.5-8.5); PLATELET COUNT, AUTOMATED 339 10^3/uL (150-450); RED BLOOD COUNT 5.06 10^6/uL (4.00-5.40); WHITE BLOOD COUNT 12.6 10^3/uL (4.0-10.0)
[2020-01-03 12:40] LABS: BLOOD UREA NITROGEN 18 MG/DL (7-18); CARBON DIOXIDE LEVEL 25 MEQ/L (21-32); CHLORIDE LEVEL 107 MEQ/L (98-107); CREATININE FOR GFR 0.99 MG/DL (0.55-1.30); ERYTHROCYTE SEDIMENTATION RATE 7 mm/hr (0-20); GLOMERULAR FILTRATION RATE > 60.0 (>60); GLUCOSE, FASTING 115 MG/DL (70-100); POTASSIUM SERUM 4.4 MEQ/L (3.5-5.1); SODIUM LEVEL 137 MEQ/L (136-145)
[2020-01-03] MEDS ORDERED: VANCOMYCIN HCL 1,000 MG, VIAL MATE ADAPTER 1 EACH in D5W 250 ML IV STA (12:43)
[2020-01-03] MEDS ORDERED: VANCOMYCIN HCL 2,000 MG in IV FLUID PLACE HOLDER 1 EA IV ONE (12:45)
[2020-01-03] MEDS ORDERED: NS 1,000 ML IV ONE (12:45)
[2020-01-03 13:28] LABS: HCG, SERUM QUALITATIVE NEGATIVE (NEGATIVE)
[2020-01-03] MEDS ORDERED: VANCOMYCIN HCL 1,000 MG, VIAL MATE ADAPTER 1 EACH in D5W 250 ML IV ONE (14:00)
--- NOTE | 2020-01-03 14:09 | REPVR ---
PROCEDURE INFORMATION: Exam: XR Left Hand Exam date and time: 01/03/2020 1:49 PM Age: 34 years old Clinical indication: Pain and injury or trauma; Injury history: Was stung on tues by wasp or hornet and wound has become worse; Late effect from previous injury; Left; Injury details: It is on the posterior part of hand close to the base of the 5th digit; Additional info: Swollen, sts, concern with bone involvement TECHNIQUE: Imaging protocol: XR Left hand. Views: 3 or more views. COMPARISON: CR Fingers 10/12/2013 10:32 PM FINDINGS: Bones/joints: Normal. Soft tissues: Normal. IMPRESSION: No acute findings. Electronically signed by: Will Plascencia On 01/03/2020 14:09:14 PM
[2020-01-03 15:27] LABS: AMPHETAMINES LEVEL URINE NEGATIVE (NEGATIVE); BARBITURATES URINE NEGATIVE (NEGATIVE); BENZODIAZEPINES URINE NEGATIVE (NEGATIVE); CANNABINOIDS URINE NEGATIVE (NEGATIVE); COCAINE METABOLITE URINE NEGATIVE (NEGATIVE); METHADONE URINE NEGATIVE (NEGATIVE); OPIATES URINE POSITIVE (NEGATIVE); PHENCYCLIDINE URINE NEGATIVE (NEGATIVE)
--- NOTE | 2020-01-03 15:30 | REPVR ---
PROCEDURE INFORMATION: Exam: CT Left Upper Extremity Without Contrast, Hand Exam date and time: 01/03/2020 3:18 PM Age: 34 years old Clinical indication: Injury or trauma; Other: Sting; Initial encounter; Hand; Left; Injury date: Hornets bite; Additional info: Concern for collection, swollen tender TECHNIQUE: Imaging protocol: CT of the Left upper extremity without contrast was performed. Exam focused on the hand. Radiation optimization: All CT scans at this facility use at least one of these dose optimization techniques: automated exposure control; mA and/or kV adjustment per patient size (includes targeted exams where dose is matched to clinical indication); or iterative reconstruction. COMPARISON: CR Hand, complete LEFT 01/03/2020 1:34 PM FINDINGS: Bones/joints: Normal. No acute fracture or dislocation. Soft tissues: There is dorsal soft tissue edema at the level of the metacarpals. There is a skin defect noted dorsal to the 4/5 metacarpals more toward the 4th best seen on image 202/65. There is no fluid collection although intravenous contrast was not given and a postcontrast study or better yet MRI would be better suited for this evaluation. There is no foreign body. IMPRESSION: There is no bony abnormality. There is soft tissue edema with a soft tissue skin and subcutaneous defect at the level of the metacarpals specifically the 4th and 5th. There is no evidence of a definite fluid collection given limitations no intravenous contrast. Electronically signed by: Will Plascencia On 01/03/2020 15:30:10 PM
[2020-01-03] MEDS ORDERED: VANCOMYCIN HCL 1,000 MG, VIAL MATE ADAPTER 1 EACH in D5W 250 ML IV SCH (15:45)
[2020-01-03] MEDS ORDERED: ACETAMINOPHEN TAB 650MG DOSE (2X325MG) PO PRN (15:45)
[2020-01-03] MEDS ORDERED: KETOROLAC 30 MG/ML 1ML VIAL IV ONE (15:45)
[2020-01-03] MEDS ORDERED: MORPHINE 2 MG/ML 1ML VIAL (J2270) IV PRN (16:15)
--- NOTE | 2020-01-03 16:29 | REPVR ---
PROCEDURE INFORMATION: Exam: US Left Non-Vascular Joint or Other Extremity Structure, Limited Upper Extremity Exam date and time: 01/03/2020 4:10 PM Age: 34 years old Clinical indication: Pain; Hand; Left; Swelling; Additional info: RO abscess, significant swelling, drainage TECHNIQUE: Imaging protocol: Left US joint or other nonvascular extremity structure or structures. Real-time ultrasound with image documentation. Limited study. Exam focused on the upper extremity in the region of clinical interest. COMPARISON: CT-Hand WITHOUT CONTRAST LEFT 01/03/2020 3:08 PM FINDINGS: Soft tissues: There is dorsal soft tissue edema corresponding to the CT scan without evidence of a focal fluid collection. IMPRESSION: Soft tissue edema without abscess. Electronically signed by: Will Plascencia On 01/03/2020 16:29:41 PM
--- NOTE | 2020-01-03 16:43 | HPEPDOC ---
[facility] Medical History & Physical Date of Admission Jan 03, 2020 Date of Service: Jan 03, 2020 Attending Physician: Jacki Schmitz MD History and Physical CHIEF COMPLAINT: left hand swelling HISTORY OF PRESENT ILLNESS: Patient is a 34-year-old female with past medical history of IV drug abuse, anx iety, depression, bipolar disorder who presented to [facility] emergency room for worsening left hand swelling, draining lesion on her left hand. The patient states she was stung by a bee on 12/28/2019. Her symptoms began with increased left hand swelling and pain and gradually increased to an open suppurative wound. She went to outpatient clinic on 12/31/2019 where they diagnosed her with cellulitis and started her on Bactrim and prednisone. She states her swelling/wound on dorsum of her left hand increased in size and became more intense from pain. She states to have been compliant with the outpatient antibiotics. She admits to 10/10 burning left dorsal hand pain, feeling "feverish" without documented fever at home, chills, lethargy, decreased appetite. She denies shortness of breath, chest pain, diarrhea, abdominal pain. She denies IV drug use and states last time she has used was last year. She denies injecting into this area of concern today. In the emergency room, vital signs were stable. WBC 12.6, CRP 1.10. UDS positive for opiates; however, she was on outpatient [place]. Wound culture was obtained showing preliminarily few WBC, gram-positive cocci in pairs. The left dorsum of the hand was tender to touch, hard with purulent fluid coming from the area of concern. Her swelling and cellulitis did not extend into the wrist or past wrist into the forearm. She had difficulty closing her left hand or opening all digits due to pain. CT left hand without contrast showed no bony abnormality but there was soft tissue edema with a soft tissue skin and subcutaneous defect at the level of the metacarpals specifically the 4th and 5th. There is no evidence of a definite fluid collection given limitations, no intravenous contrast. She was given a dose of IV vancomycin. The left hand US was ordered to look further for abscess. Due to patient failing outpatient antibiotics already, patient was admitted for left hand cellulitis, rule out abscess and potentially needing to debridement. REVIEW OF SYSTEMS: CONSTITUTIONAL: Denies unexplained weight gain or weight loss, lnight sweats EYES: Denies eye drainage, eye pain, visual changes, dry/irritated eye EARS, NOSE, MOUTH, THROAT: Denies difficulty hearing, ringing in ears, mouth sores, loose teeth, sore throat, facial numbness or pain NECK: Denies swollen glands CARDIOVASCULAR: Denies irregular heartbeat, racing heart, chest pains, swelling of feet or legs, pain in legs with walking RESPIRATORY: Denies shortness of breath, night sweats, wheezing, sputum production, oxygen at home, coughing up blood, cough lasting > 1 month GASTROINTESTINAL: Denies abdominal pain, constipation, bloody stool, diarrhea, heartburn, nausea, vomiting GENITOURINARY: Denies painful urination, bloody urine, frequent urination, urgency, leaking urine, impotence MUSCULOSKELETAL: Denies joint pain, muscle pain, leg swelling INTEGUMENTARY: Denies rash, itching, new skin lesion, change in existing skin lesion, hair loss or increase, breast changes. NEUROLOGICAL: Denies headaches, dizziness, difficulty walking, numbness or tingling PSYCHIATRIC: Denies recurrent bad thoughts, mood swings, hallucinations PAST MEDICAL HISTORY: 1. IVDU hx (rhonda, amphetamines) 2. Anxiety 3. Depression 4. Bipolar disorder 5. Obesity 6. Tobacco use PAST SURGICAL HISTORY: 1. Tubal ligation 2. Tonsillectomy/adenoidectomy FAMILY HISTORY: Father: HTN, HLD. Alive Mother: DM. Alive SOCIAL HISTORY: Smoker of 1 cigar/day, 18 years. also smokes marijuana recreationally. Last use of IV drug use > 1 yr ago, hx of methamphetamines and rhonda. Denies alcohol use. Lives locally with family. ALLERGIES: Please see below. HOME MEDICATIONS: Please see below. PHYSICAL EXAMINATION: CONSTITUTIONAL: Tearful in bed, AAO x 3 EYES: PERRLA, EOM intact HENT, MOUTH: Normocephalic, atraumatic, moist mucous membranes, NECK: SUPPLE, no JVD, no lymphadenopathy, no carotid bruit CV: Regular rate and rhythm, S1S2 normal, no murmurs/rubs/gallops RESPIRATORY: Clear to auscultation bilaterally, no rales/rhonchi/wheezes GI: obese abd, BS positive in 4 quadrants, soft, nontender, nondistended, no rebound or guarding, no organomegaly : Deferred MUSCULOSKELETAL: Normal ROM. No cyanosis, clubbing, swelling, joint deformity, extremity edema EXTREMITIES: nonpitting edema and swelling in the left hand, all digits. Tenderness to touch, erythema and warmth. 1 inch x 0.5 inch open wound, some purulence. No foul smell. Lower ext edema neg INTEGUMENTARY: see above under "extremities", no rashes NEUROLOGIC: Cranial Nerves II-XII are intact, no focal deficits PSYCHIATRIC: Mood and affect are normal LABORATORY DATA: Please see below IMAGING: CT left hand: There is no bony abnormality. There is soft tissue edema with a soft tissue skin and subcutaneous defect at the level of the metacarpals specifically the 4th and 5th. There is no evidence of a definite fluid collection given limitations no intravenous contrast. US left hand: F/u report ASSESSMENT: 34-year-old female with past medical history of IV drug abuse, anxiety, depression, bipolar disorder who was admitted for left hand cellulitis, rule out abscess and potentially needing to debridement. PLAN: 1. Left hand cellulitis with open wound, r/o abscess. Possibly infected bug bite, denies IV drug use in this area recently. -WBC 12.6, CRP 1.10, afebrile -Failed o/p treatment with bactrim PO BID since 12/31/19, states to have been compliant -CT left hand above -F/u blood cultures, wound culture, ultrasound of left hand to r/o abscess, daily labs -Started on IV vancomycin -Surgery consulted for possible debridement 2. Anxiety/depression/bipolar d/o. -Stable -Not on home meds 3. Hx of IVDU -UDS + for opiates but on o/p norco -Monitor for s/s of withdrawal 4. Obesity -BMI 37 -F/u lipid panel, HbA1c 5. DVT px. -Lovenox daily DISPOSITION: Admit to inpatient status. Surgery consulted for possible debridement. Plan is discharge home when medically improved. Vital Signs Vital Signs Date Time Temp Pulse Resp B/P (MAP) Pulse Ox O2 Delivery O2 Flow Rate FiO2 01/03/20 13:01 98.3 62 18 132/95 (107) 97 Room Air Laboratory Data Labs 24H Laboratory Tests 2 01/03/20 11:41: Immature Granulocyte % (Auto) 0.6, Neutrophils (%) (Auto) 78.0H, Lymphocytes (%) (Auto) 16.1L, Monocytes (%) (Auto) 4.8, Eosinophils (%) (Auto) 0.1, Basophils (%) (Auto) 0.4, Neutrophils # (Auto) 9.8H, Lymphocytes # (Auto) 2.0, Monocytes # (Auto) 0.6, Eosinophils # (Auto) 0.0, Basophils # (Auto) 0.1, Nucleated Red Blood Cells % (auto) 0.0, Erythrocyte Sedimentation Rate 7, Anion Gap 5L, Glomerular Filtration Rate > 60.0, Lactic Acid Level 1.8, Calcium Level 9.0, C-Reactive Protein, Quantitative 1.10H, Human Chorionic Gonadotropin, Qual NEGATIVE 01/03/20 14:48: Urine Color YELLOW, Urine Appearance CLEAR, Urine pH 6.0, Urine Specific [place] 1.016, Urine Protein NEGATIVE, Urine Glucose (UA) NEGATIVE, Urine Ketones NEGATIVE, Urine Blood NEGATIVE, Urine Nitrite NEGATIVE, Urine Bilirubin NEGATIVE, Urine Urobilinogen 2.0H, Urine Leukocyte Esterase NEGATIVE, Urine WBC (Auto) 1, Urine RBC (Auto) 4H, Urine Hyaline Casts (Auto) 0, Urine Bacteria ( Auto) NEGATIVE, Urine Squamous Epithelial Cells 3, Urine Sperm (Auto) , Urine Opiates Screen POSITIVEH, Urine Methadone Screen NEGATIVE, Urine Barbiturates Screen NEGATIVE, Urine Phencyclidine Screen NEGATIVE, Urine Amphetamines Screen NEGATIVE, Urine Benzodiazepines Screen NEGATIVE, Urine Cocaine Metabolite Screen NEGATIVE, Urine Cannabinoids Screen NEGATIVE CBC/BMP Laboratory Tests 01/03/20 11:41 Microbiology Microbiology 01/03/20 Blood Culture, Received Pending 01/03/20 Blood Culture, Received Pending 01/03/20 Gram Stain - Final, Resulted 01/03/20 Wound Culture, Resulted Pending Home Medications Scheduled Prednisone (Prednisone) 20 Mg Tablet, 40 MG PO DAILY Sulfamethoxazole/Trimethoprim (Sulfamethoxazole-Tmp Ds Tablet) 1 Each Tablet, 1 TAB PO BID Scheduled PRN Hydrocodone/Acetaminophen (Hydrocodone-Acetamin 5-325 mg) 1 Each Tablet, 1 TAB PO QID PRN for PAIN Allergies Coded Allergies: POLLEN (Verified Allergy, Mild, ITCHING, 08/28/18) Dust (Verified Allergy, Unknown, 08/28/18) A-FIB/CHADSVASC A-FIB History Current/History of A-Fib/PAF?: No Current PO Anticoag Therapy: No Age/Risk Factor Scoring CHADSVASC: CHADSVASC Response (Comments) Value Age Risk Factor Age < 65 years old 0 Gender Risk Factor Female 1 Hx of CHF No 0 Hx of HTN No 0 Hx of Stroke/TIA/or VTE No 0 Hx of Diabetes No 0 Hx of Vascular Disease No 0 Total 1 Treatment Treatment ordered: Other Other anticoagulant ordered: Jacki Solares MD Jan 03, 2020 16:43
[2020-01-03 17:12] VITALS: BP 125/73
[2020-01-03] MEDS: NORCO, ANEXSIA 5/325MG TABLET (HYDROcodone/ACETAMINOPHEN) PO PRN (21:38)
[2020-01-03 22:00] VITALS: BP 132/87
[2020-01-03] MEDS: RAMELTEON 8 MG TAB (ROZEREM) PO PRN (22:06)
[2020-01-04] MEDS: VANCOMYCIN HCL 1,000 MG, VIAL MATE ADAPTER 1 EACH in D5W 250 ML IV SCH ×2 (00:33→12:32)
[2020-01-04] MEDS: VANCOMYCIN HCL 750 MG, VIAL MATE ADAPTER 1 EACH in D5W 250 ML IV SCH ×2 (02:31→14:00)
[2020-01-04 06:00] VITALS: BP 113/70
[2020-01-04 06:42] LABS: HEMATOCRIT 41.7 % (36.0-47.0); HEMOGLOBIN 13.5 g/dl (12.0-15.5); MEAN CORPUSCULAR HEMOGLOBIN 29.2 pg (27.0-33.0); MEAN CORPUSCULAR HGB CONC 32.4 g/dl (32.0-36.5); MEAN CORPUSCULAR VOLUME 90.1 fl (80.0-96.0); PLATELET COUNT, AUTOMATED 257 10^3/uL (150-450); RED BLOOD COUNT 4.63 10^6/uL (4.00-5.40); WHITE BLOOD COUNT 7.3 10^3/uL (4.0-10.0)
[2020-01-04 07:05] LABS: HEMOGLOBIN A1c 5.2 %
[2020-01-04 07:06] LABS: ALBUMIN 2.9 GM/DL (3.2-5.2); ALT/SGPT 57 U/L (12-78); BILIRUBIN,TOTAL 0.4 MG/DL (0.2-1.0); BLOOD UREA NITROGEN 17 MG/DL (7-18); CALCIUM LEVEL 8.1 MG/DL (8.5-10.1); CARBON DIOXIDE LEVEL 24 MEQ/L (21-32); CHLORIDE LEVEL 110 MEQ/L (98-107); CHOLESTEROL RISK RATIO 3.235 (<5); CREATININE FOR GFR 0.75 MG/DL (0.55-1.30); GLOMERULAR FILTRATION RATE > 60.0 (>60); GLUCOSE, FASTING 88 MG/DL (70-100); POTASSIUM SERUM 4.3 MEQ/L (3.5-5.1); SODIUM LEVEL 140 MEQ/L (136-145); TOTAL PROTEIN 6.2 GM/DL (6.4-8.2)
[2020-01-04] MEDS: ENOXAPARIN 40MG/0.4ML SYRINGE (J1650 PER 10MG) SC SCH (08:55)
[2020-01-04] MEDS ORDERED: INFLUENZA QUADRIVALENT PF VACCINE 0.5ML SYRINGE IM ONE (09:00)
[2020-01-04] MEDS: NORCO, ANEXSIA 5/325MG TABLET (HYDROcodone/ACETAMINOPHEN) PO PRN ×3 (09:04→20:29)
--- NOTE | 2020-01-04 10:46 | IPNPDOC ---
Text Note Date of Service The patient was seen on 01/04/20. NOTE SUBJECTIVE: -No acute issues overnight PHYSICAL EXAMINATION: CONSTITUTIONAL: AAO x 3 EYES: PERRLA, EOM intact HENT, MOUTH: Normocephalic, atraumatic, moist mucous membranes, NECK: SUPPLE CV: Regular rate and rhythm, no murmurs/rubs/gallops RESPIRATORY: Clear to auscultation bilaterally GI: obese, normoactive sounds, soft, nontender, nondistended, no rebound or guarding, no hepatosplenomegaly EXTREMITIES: nonpitting edema and swelling in the left hand. Tenderness to touc h, erythema boundary receding. 1 inch x 0.5 inch open wound, with minimal purulent drainage. NEUROLOGIC: Cranial Nerves II-XII are intact, no focal deficits PSYCHIATRIC: Mood and affect are normal LABORATORY DATA: Please see below. Reviewed WBC 7.3 hgb 13.5 platelets 257 na 140 K 4.3 Cr 0.75 IMAGING: CT left hand: There is no bony abnormality. There is soft tissue edema with a soft tissue skin and subcutaneous defect at the level of the metacarpals specifically the 4th and 5th. There is no evidence of a definite fluid collection given limitations no intravenous contrast. US left hand: F/u report ASSESSMENT: 34-year-old W with a history of IVDU, anxiety, depression, bipolar disorder who was admitted for left hand cellulitis, rule out abscess and potentially needing to debridement. PLAN: 1. Left hand cellulitis with open wound, r/o abscess. -Failed o/p treatment with bactrim PO BID since 12/31/19, reported that she was compliant -CT left hand above -F/u blood cultures, wound culture, ultrasound of left hand w/o abscess -continue IV vancomycin, day 2 -Surgery consulted for possible debridement, pending recs. No abscess. 2. Anxiety/depression/bipolar d/o. -Stable 3. Hx of IVDU -UDS + for opiates but on o/p norco -Monitor for s/s of withdrawal 4. Obesity -BMI 37 -F/u lipid panel, HbA1c 5. DVT px. -Lovenox daily DISPOSITION: Admit to inpatient status. Surgery consulted for possible debridement, pending recs. Plan is for discharge home when medically improved. VS,Fishbone, I+O VS, Fishbone, I+O Laboratory Tests 9/28/20 11:41 01/04/20 06:16 Vital Signs Date Time Temp Pulse Resp B/P (MAP) Pulse Ox O2 Delivery O2 Flow Rate FiO2 01/04/20 06:00 98.2 51 20 113/70 (84) 98 01/03/20 17:12 Room Air I&O- Last 24 Hours up to 6 AM 01/04/20 06:00 Intake Total 3105 ml Balance 3105 ml CADEN MARROQUIN MD Jan 04, 2020 08:22
[2020-01-04 14:00] VITALS: BP 110/53
[2020-01-04] MEDS: RAMELTEON 8 MG TAB (ROZEREM) PO PRN (20:28)
[2020-01-04 22:00] VITALS: BP 108/66
[2020-01-05] MEDS: VANCOMYCIN HCL 1,000 MG, VIAL MATE ADAPTER 1 EACH in D5W 250 ML IV SCH (00:31)
[2020-01-05] MEDS: VANCOMYCIN HCL 750 MG, VIAL MATE ADAPTER 1 EACH in D5W 250 ML IV SCH (02:12)
[2020-01-05 06:00] VITALS: BP 107/64
[2020-01-05 06:00] LABS: HEMATOCRIT 43.9 % (36.0-47.0); MEAN CORPUSCULAR HEMOGLOBIN 29.2 pg (27.0-33.0); MEAN CORPUSCULAR HGB CONC 31.9 g/dl (32.0-36.5); MEAN CORPUSCULAR VOLUME 91.5 fl (80.0-96.0); PLATELET COUNT, AUTOMATED 271 10^3/uL (150-450)
[2020-01-05 06:26] LABS: ALBUMIN 2.9 GM/DL (3.2-5.2); ALT/SGPT 97 U/L (12-78); BILIRUBIN,TOTAL 0.5 MG/DL (0.2-1.0); BLOOD UREA NITROGEN 11 MG/DL (7-18); CALCIUM LEVEL 8.2 MG/DL (8.5-10.1); CARBON DIOXIDE LEVEL 25 MEQ/L (21-32); CHLORIDE LEVEL 109 MEQ/L (98-107); CREATININE FOR GFR 0.71 MG/DL (0.55-1.30); GLOMERULAR FILTRATION RATE > 60.0 (>60); GLUCOSE, FASTING 92 MG/DL (70-100); POTASSIUM SERUM 4.4 MEQ/L (3.5-5.1); SODIUM LEVEL 138 MEQ/L (136-145); TOTAL PROTEIN 6.4 GM/DL (6.4-8.2)
--- NOTE | 2020-01-05 08:53 | DS.PDOC ---
Discharge Summary General Date of Admission Jan 03, 2020 at 15:42 Date of Discharge 01/05/2020 Attending Physician: CADEN MARROQUIN MD Discharge Summary PROCEDURES PERFORMED DURING STAY: None ADMITTING DIAGNOSES: 1. Cellulitis And Abscess Of Hand. DISCHARGE DIAGNOSES: 1. Left hand cellulitis with open draining wound 2. Anxiety 3. Depression 4. Bipolar disorder 5. Obesity 6. Tobacco use COMPLICATIONS/CHIEF COMPLAINT: Cellulitis And Abscess Of Hand. HISTORY OF PRESENT ILLNESS: 34-year-old W with past medical history of IV drug abuse, anxiety, depression, bipolar disorder who presented to [facility] emergency room for worsening left hand swelling, draining wound on her left hand. The patient reported that she was stung by a bee on 12/28/2019. Her symptoms began with increased left hand swelling and pain and gradually increased to an open suppurative wound. She went to outpatient clinic on 12/31/2019 where they diagnosed her with cellulitis and started her on Bactrim and prednisone. She reported her swelling/wound on dorsum of her left hand increased in size and became more intense from pain. She reported 100% compliance with the outpatient antibiotics. She otherwise did not have documented fever at home, chills, lethargy, decreased appetite and denied IV drug use with the last use being last year. HOSPITAL COURSE: In the emergency room, vital signs were stable. WBC 12.6, CRP 1.10. UDS positive for opiates; however, she was on outpatient [place]. Wound culture was obtained showing preliminarily few WBC, gram-positive cocci in pairs. The left dorsum of the hand was tender to touch, hard with purulent fluid coming from the area of concern. Her swelling and cellulitis did not extend into the wrist or past wrist into the forearm. She had difficulty closing her left hand or opening all digits due to pain. CT left hand without contrast showed no bony abnormality but there was soft tissue edema with a soft tissue skin and subcutaneous defect at the level of the metacarpals specifically the 4th and 5th. There is no evidence of a definite fluid collection given limitations, no intravenous contrast. She was given a dose of IV vancomycin and later a left hand US showed no abscess. Due to patient failing outpatient antibiotics already, patient was admitted for left hand cellulitis, treated thus far with 3 days of IV vancomycin and evaluated by surgery that recommended medical management with antibiotics but no indication for debridement or any other surgical procedure. She did well on vancomycin and the erythema resolved, drainage improved and was eventually transitioned to doxycycline. She is now being discharged home with 7 more days of doxycycline to complete a 10d course and close PCP follow up for wound check. DISCHARGE MEDICATIONS: Please see below. ALLERGIES: Please see below. PHYSICAL EXAMINATION ON DISCHARGE: VITAL SIGNS: Please see below. PHYSICAL EXAMINATION: CONSTITUTIONAL: AAO x 3 EYES: PERRLA, EOM intact HENT, MOUTH: Normocephalic, atraumatic, moist mucous membranes, NECK: SUPPLE CV: Regular rate and rhythm, no murmurs/rubs/gallops RESPIRATORY: Clear to auscultation bilaterally GI: obese, normoactive sounds, soft, nontender, nondistended, no rebound or guarding, no hepatosplenomegaly EXTREMITIES: Mild nonpitting edema of left hand. Approximately 1 inch x 0.5 inch open wound, with minimal purulent drainage with clean dressing. No surrounding erythema. NEUROLOGIC: Cranial Nerves II-XII are intact, no focal deficits PSYCHIATRIC: Mood and affect are normal LABORATORY DATA: Please see below. IMAGING: CT left hand: There is no bony abnormality. There is soft tissue edema with a soft tissue skin and subcutaneous defect at the level of the metacarpals specifically the 4th and 5th. There is no evidence of a definite fluid collection given limitations no intravenous contrast. US left hand: Soft tissue edema without abscess. L hand XR: No acute findings. PROGNOSIS: Good ACTIVITY: As tolerated DIET: Regular DISCHARGE PLAN: Home with 7d of doxycycline and daily dressing changes with large bandaid after washing with clean water. Close PCP follow up within 7d. Dr. Ozuna referral. DISPOSITION: Home DISCHARGE INSTRUCTIONS: 1. Home with 7d of doxycycline and daily dressing changes with large bandaid after washing with clean water. Close PCP follow up within 7d. Dr. Ozuna referral. ITEMS TO FOLLOWUP ON ON OUTPATIENT: 1. L hand wound and cellulitis DISCHARGE CONDITION: Stable TIME SPENT ON DISCHARGE: 46 minutes. Vital Signs/I&Os Vital Signs Date Time Temp Pulse Resp B/P (MAP) Pulse Ox O2 Delivery O2 Flow Rate FiO2 01/05/20 06:00 98.2 58 18 107/64 (78) 95 01/04/20 14:00 Room Air I&O- Last 24 Hours up to 6 AM 01/05/20 06:00 Intake Total 2950 ml Balance 2950 ml Laboratory Data Labs 24H Laboratory Tests 2 01/05/20 05:36: Nucleated Red Blood Cells % (auto) 0.0, Anion Gap 4L, Glomerular Filtration Rate > 60.0, Calcium Level 8.2L, Total Bilirubin 0.5, Aspartate Amino Transf (AST/SGOT) 77H, Alanine Aminotransferase (ALT/SGPT) 97H, Alkaline Phosphatase 54, Total Protein 6.4, Albumin 2.9L, Albumin/Globulin Ratio 0.8L CBC/BMP Laboratory Tests 01/05/20 05:36 Microbiology Microbiology 01/03/20 Blood Culture - Preliminary, Resulted No growth after 24 hours . All specim... 01/03/20 Blood Culture - Preliminary, Resulted No growth after 24 hours . All specim... 01/03/20 Gram Stain - Final, Resulted 01/03/20 Wound Culture, Resulted Pending Discharge Medications Scheduled Prednisone (Prednisone) 20 Mg Tablet, 40 MG PO DAILY, (Reported) Sulfamethoxazole/Trimethoprim (Sulfamethoxazole-Tmp Ds Tablet) 1 Each Tablet, 1 TAB PO BID, (Reported) Scheduled PRN Hydrocodone/Acetaminophen (Hydrocodone-Acetamin 5-325 mg) 1 Each Tablet, 1 TAB PO QID PRN for PAIN, (Reported) Allergies Coded Allergies: POLLEN (Verified Allergy, Mild, ITCHING, 08/28/18) Dust (Verified Allergy, Unknown, 08/28/18) CADEN MARROQUIN MD Jan 05, 2020 08:53
[2020-01-05] MEDS ORDERED: DOXY100T PO (08:55)
[2020-01-05] MEDS ORDERED: DOXYCYCLINE HYCLATE 100MG TABLET PO SCH (09:00)
[2020-01-05] MEDS: ENOXAPARIN 40MG/0.4ML SYRINGE (J1650 PER 10MG) SC SCH (09:08)
[2020-01-05] MEDS: NORCO, ANEXSIA 5/325MG TABLET (HYDROcodone/ACETAMINOPHEN) PO PRN (09:09)
--- NOTE | 2020-01-09 11:42 | CR ---
DATE OF CONSULTATION: 01/03/2020 REASON FOR CONSULTATION: Left hand infection. HISTORY OF PRESENT ILLNESS: The patient is a pleasant, 34-year-old woman who reports that on or about 12/28/2019, she was stung by a bee or wasp on the dorsum of the left hand. She initially noticed some soreness and developed a raised blister-like area on the dorsum of the hand. She was seen in an outpatient clinic on 12/31/2019 and she was started on Bactrim and prednisone. She reports that by 01/01/2020, the blister had opened up and she noticed some drainage. She had persistent drainage over the ensuing several days. Because of the progressive discomfort and drainage, she was seen in the emergency department today on 01/03/2020. She was found to have an open, fairly deep wound on the dorsum of the hand between the 4th and 5th metacarpals. She underwent testing with a CT scan of the hand and an ultrasound as well. She was admitted for antibiotic therapy and I was asked to evaluate the patient. ALLERGIES: The patient reports allergies to dust and pollen. MEDICATIONS: Prior to admission include: - [place] as needed for pain - prednisone 40 mg by mouth daily - Bactrim double strength one tablet twice daily SURGICAL HISTORY: Significant for tonsillectomy and adenoidectomy and a tubal ligation. MEDICAL HISTORY: Significant for rheumatoid arthritis and a history of depression and possible bipolar disorder. She does have a history of previous IV drug use but denies any recent use. FAMILY AND SOCIAL HISTORY: As reported by Dr. Schmitz. PHYSICAL EXAMINATION: Patient is a pleasant, moderately obese, young woman lying quietly in the hospital bed. Her most recent vital signs show a temperature of 98.1, pulse of 61, respirations of 18, and a blood pressure of 125/73. She has a bandage on the dorsum of the left hand and this is removed. She has an approximately 3 to 3.5 cm area of redness over the interspace between the 4th and 5th metacarpals. There is some loose blistered skin around the edges of the wound as well as a small amount of debris more centrally in the wound. The wound does extend into the subcutaneous tissues with an area of what appears to be full-thickness skin loss perhaps 1.5 cm in length x 1 cm in width. With gentle palpation there does not appear to be any fluid that can be expressed from the wound and there is no evidence of fluctuance. There is some mild redness around the edges of the wound. LABORATORY STUDIES: Show that in the emergency department she had a white count of 13, hemoglobin 15, hematocrit 45, and a platelet count of 339,000. Differential count showed 78% neutrophils and 16% lymphocytes. Chemistry profile showed normal electrolytes, BUN 18, creatinine 1, and a glucose of 115. C-reactive protein was 1.1 and the hCG was negative. A urine toxicology screen was positive for opiates but she had received some [place]. Urinalysis was not suggestive of a urinary tract infection. I reviewed her ultrasound and CT scan of the left hand. These show some loss of soft tissue corresponding to the wound noted on exam but no evidence of any undrained fluid collection within the hand. A culture had been obtained and the gram stain showed a few white cells and a few gram-positive cocci in pairs. IMPRESSION: Open abscess dorsum of left hand without evidence of any undrained fluid collection. RECOMMENDATIONS: I debrided the small amounts of remaining blister and peeled skin from around the edges of the wound. An occlusive bandage was reapplied afterwards. The patient tolerated this well. I would recommend continuing with antibiotic therapy. She will need some local wound care just to keep the wound clean, but I would anticipate that this will heal without significant difficulty. I would recommend just washing this gently with some soap and water twice daily and applying a small dressing. GENARO
== END 2020-01-05 12:59 | disposition home or self-care (01) | DRG 383 ==
LOC: M ED 10:56 → M ED INP 15:42 → ENRESERV 15:56 → M MSPAV 17:03
PROVIDERS: ADMIT Internal Medicine; ATTEND Internal Medicine
DX: L03.114 Cellulitis of left upper limb (principal); F11.10 Opioid abuse, uncomplicated; F41.9 Anxiety disorder, unspecified; F31.9 Bipolar disorder, unspecified; L02.512 Cutaneous abscess of left hand; J30.1 Allergic rhinitis due to pollen; J30.89 Other allergic rhinitis; F15.10 Other stimulant abuse, uncomplicated; F17.210 Nicotine dependence, cigarettes, uncomplicated; E66.9 Obesity, unspecified; Z68.37 Body mass index [BMI] 37.0-37.9, adult; Z79.52 Long term (current) use of systemic steroids; Z79.899 Other long term (current) drug therapy

== ENCOUNTER → 2020-04-14 | Outpatient (CLI) | payer OTHER ==
[~2020-04-14] MED LIST changes: +DOXY100T PO; +HYDR-3713 PO; +SULF1TAB93 PO
== END ==
LOC: M LABSMTC 13:37
PROVIDERS: ATTEND Family Medicine
DX: Z20.822 Contact with and (suspected) exposure to COVID-19 (principal)

== ENCOUNTER 2022-04-30 10:04 | Emergency (ER) | payer OTHER ==
[~2022-04-30] VITALS: Ht 167.6 cm; Wt 97.7 kg
[~2022-04-30 10:04] MED LIST changes: +BACTDSTA PO; -SULF1TAB93 PO
[2022-04-30] MEDS ORDERED: MEDR4PAK PO (13:04)
[2022-04-30] MEDS ORDERED: KETOROLAC 30 MG/ML 1ML VIAL IM ONE (13:15)
[2022-04-30 13:23] VITALS: BP 113/55
== END 2022-04-30 13:34 | disposition home or self-care (01) ==
LOC: M ED 10:04
DX: M25.461 Effusion, right knee (principal); M25.561 Pain in right knee; Z98.51 Tubal ligation status

== ENCOUNTER 2022-09-13 12:18 | Emergency (ER) | payer OTHER ==
[~2022-09-13] VITALS: Ht 170.2 cm; Wt 107.4 kg
[2022-09-13] MEDS ORDERED: KETOROLAC 30 MG/ML 1ML VIAL IV ONE (14:50)
[2022-09-13] MEDS ORDERED: methylPREDNISolone 125MG 2ML VIAL IV ONE (14:50)
[2022-09-13] MEDS ORDERED: AUGMENTIN 875 MG TAB PO ONE (14:50)
[2022-09-13 14:56] LABS: BASO # 0.1 10^3/uL (0.0-0.2); BASO % 1.1 % (0.0-1.0); EOS # 0.3 10^3/uL (0.0-0.5); EOS % 3.5 % (0.0-3.0); HEMATOCRIT 44.3 % (36.0-47.0); HEMOGLOBIN 14.6 g/dl (12.0-15.5); LYMPH % 27.5 % (24.0-44.0); MEAN CORPUSCULAR HEMOGLOBIN 29.8 pg (27.0-33.0); MEAN CORPUSCULAR VOLUME 90.4 fl (80.0-96.0); MONO # 0.5 10^3/uL (0.0-0.8); MONO % 6.5 % (2.0-8.0); NEUTROPHILS # 4.5 10^3/uL (1.5-8.5); NEUTROPHILS % 61.1 % (36.0-66.0); PLATELET COUNT, AUTOMATED 286 10^3/uL (150-450); WHITE BLOOD COUNT 7.4 10^3/uL (4.0-10.0)
[2022-09-13] MEDS ORDERED: AMOX875T2 PO (14:59)
[2022-09-13] MEDS ORDERED: PRED20TA PO (14:59)
[2022-09-13] MEDS ORDERED: HYDR-3713 PO (14:59)
[2022-09-13 15:10] VITALS: BP 135/87; TEMP 97.5; O2SAT 98
[2022-09-13 15:51] LABS: ERYTHROCYTE SEDIMENTATION RATE 22 mm/hr (0-20)
== END 2022-09-13 15:14 | disposition home or self-care (01) ==
LOC: M ED 12:18
DX: K04.7 Periapical abscess without sinus (principal); R22.0 Localized swelling, mass and lump, head; M06.9 Rheumatoid arthritis, unspecified; E03.9 Hypothyroidism, unspecified; F31.9 Bipolar disorder, unspecified
CPT/HCPCS: 36415; 80047; 83605; 84702; 85025; 85652; 86140; 87040; 96374; 96375; 99284; J1885; J2930

== ENCOUNTER → 2022-09-30 | Outpatient (CLI) | payer OTHER ==
[~2022-09-30] MED LIST changes: +AMOX875T2 PO
== END ==
LOC: M RAD 10:30
PROVIDERS: ATTEND Nurse Practitioner Family
DX: M25.522 Pain in left elbow (principal); M21.612 Bunion of left foot

== ENCOUNTER → 2022-10-31 | Outpatient (REF) | payer OTHER ==
[2022-10-31 18:16] LABS: GC DNA AMPLIFICATION NEGATIVE (NEGATIVE)
== END ==
LOC: M LAB REF 16:28
PROVIDERS: ATTEND Nurse Practitioner Family
DX: N94.10 Unspecified dyspareunia (principal)

== ENCOUNTER → 2022-11-07 | Outpatient (REF) | payer OTHER ==
[2022-11-07 13:08] LABS: HEPATITIS B SURFACE ANTIBODY POSITIVE (POSITIVE)
== END ==
LOC: M LAB REF 11:45
PROVIDERS: ATTEND Nurse Practitioner Family
DX: B19.20 Unspecified viral hepatitis C without hepatic coma (principal)

== ENCOUNTER → 2022-12-06 | Outpatient (REF) | payer OTHER | LOC: M LAB REF 16:24 | PROVIDERS: ATTEND Nurse Practitioner Family | DX: E03.9 Hypothyroidism, unspecified (principal) ==

== ENCOUNTER → 2023-02-26 | Outpatient (CLI) | payer OTHER ==
[2023-02-26 15:44] LABS: BASO # 0.1 10^3/uL (0.0-0.2); EOS # 0.2 10^3/uL (0.0-0.5); EOS % 1.9 % (0.0-3.0); HEMATOCRIT 44.5 % (36.0-47.0); HEMOGLOBIN 14.7 g/dl (12.0-15.5); LYMPH # 2.9 10^3/uL (1.5-5.0); LYMPH % 31.2 % (24.0-44.0); MEAN CORPUSCULAR HEMOGLOBIN 29.9 pg (27.0-33.0); MEAN CORPUSCULAR VOLUME 90.4 fl (80.0-96.0); MONO # 0.7 10^3/uL (0.0-0.8); MONO % 7.4 % (2.0-8.0); NEUTROPHILS # 5.4 10^3/uL (1.5-8.5); NEUTROPHILS % 58.2 % (36.0-66.0); PLATELET COUNT, AUTOMATED 309 10^3/uL (150-450); RED BLOOD COUNT 4.92 10^6/uL (4.00-5.40); WHITE BLOOD COUNT 9.3 10^3/uL (4.0-10.0)
[2023-02-26 16:07] LABS: PERCENT SATURATION 20.4 % (13.2-45.0)
[2023-02-26 16:09] LABS: FERRITIN 24.7 NG/ML (7.3-270.7)
[2023-02-26 17:44] LABS: CHLAMYDIA DNA AMPLIFICATION NEGATIVE (NEGATIVE); GC DNA AMPLIFICATION NEGATIVE (NEGATIVE)
== END ==
LOC: M PLALAB 14:22
PROVIDERS: ATTEND Nurse Practitioner Family
DX: N92.0 Excessive and frequent menstruation with regular cycle (principal); N94.10 Unspecified dyspareunia

== ENCOUNTER → 2023-03-04 | Outpatient (REF) | payer OTHER ==
[2023-03-04 18:02] LABS: C REACTIVE PROTEIN QUANTITATIV < 0.40 MG/DL (<1.0)
[2023-03-04 18:18] LABS: RHEUMATOID FACTOR QUANT 167.9 IU/ML (<14)
== END ==
LOC: M LAB REF 16:35
PROVIDERS: ATTEND Nurse Practitioner Family
DX: M06.00 Rheumatoid arthritis without rheumatoid factor, unspecified site (principal)

== ENCOUNTER → 2023-03-21 | Outpatient (CLI) | payer OTHER | LOC: M WHC 13:37 | PROVIDERS: ATTEND Nurse Practitioner Family | DX: N94.10 Unspecified dyspareunia (principal); N92.0 Excessive and frequent menstruation with regular cycle; N88.9 Noninflammatory disorder of cervix uteri, unspecified ==

== ENCOUNTER → 2023-03-21 | Outpatient (CLI) | payer OTHER ==
[2023-03-21 17:45] LABS: ALBUMIN 4.1 G/DL (3.2-5.2); BILIRUBIN,DIRECT 0.5 MG/DL (<0.4); BILIRUBIN,TOTAL 1.6 MG/DL (0.3-1.2); TOTAL PROTEIN 7.2 G/DL (5.7-8.2)
[2023-03-25 08:09] LABS: HEPATITIS A IgG TOTAL Negative (Negative); HEPATITIS C QUANTITATION HCV Not Detected IU/mL (.)
== END ==
LOC: M PLALAB 14:26
PROVIDERS: ATTEND Internal Medicine Infectious Disease
DX: B18.2 Chronic viral hepatitis C (principal)

== ENCOUNTER → 2023-10-08 | Outpatient (REF) | payer OTHER ==
[2023-10-08 17:45] LABS: HEMATOCRIT 45.7 % (36.0-47.0); HEMOGLOBIN 14.7 g/dl (12.0-15.5); MEAN CORPUSCULAR HEMOGLOBIN 29.3 pg (27.0-33.0); MEAN CORPUSCULAR HGB CONC 32.2 g/dl (32.0-36.5); MEAN CORPUSCULAR VOLUME 91.2 fl (80.0-96.0); PLATELET COUNT, AUTOMATED 293 10^3/uL (150-450); RED BLOOD COUNT 5.01 10^6/uL (4.00-5.40); WHITE BLOOD COUNT 6.4 10^3/uL (4.0-10.0)
[2023-10-08 17:55] LABS: ERYTHROCYTE SEDIMENTATION RATE 25 mm/hr (0-20)
[2023-10-08 18:12] LABS: ALBUMIN 3.9 G/DL (3.2-5.2); ALKALINE PHOSPHATASE 50 U/L (46-116); ALT/SGPT 11 U/L (7.0-40); AST/SGOT < 8 U/L (<34); BILIRUBIN,TOTAL 1.4 MG/DL (0.3-1.2); BLOOD UREA NITROGEN 8 MG/DL (9-23); CALCIUM LEVEL 8.6 MG/DL (8.5-10.1); CARBON DIOXIDE LEVEL 24 MMOL/L (20-31); CHLORIDE LEVEL 107 MMOL/L (98-107); CREATININE FOR GFR 0.75 MG/DL (0.55-1.30); GLOMERULAR FILTRATION RATE > 60.0 (>60); GLUCOSE, FASTING 77 MG/DL (60-100); POTASSIUM SERUM 4.6 MMOL/L (3.5-5.1); SODIUM LEVEL 137 MMOL/L (136-145); TOTAL PROTEIN 6.9 G/DL (5.7-8.2)
== END ==
LOC: M SFHCRHEU 13:14
PROVIDERS: ATTEND Internal Medicine Rheumatology
DX: M05.9 Rheumatoid arthritis with rheumatoid factor, unspecified (principal)

== ENCOUNTER → 2023-10-23 | Outpatient (CLI) | payer OTHER ==
[2023-10-23 13:56] LABS: ALKALINE PHOSPHATASE 51 U/L (46-116); ALT/SGPT 12 U/L (7.0-40); AST/SGOT < 8 U/L (<34); BILIRUBIN,DIRECT 0.3 MG/DL (<0.4); TOTAL PROTEIN 6.9 G/DL (5.7-8.2)
[2023-10-25 04:12] LABS: HCV RNA QUANTITATION <15 NOT DETECTED IU/mL (NOT DETECTED); HCV RNA log10 <1.18 NOT DETECTED Log IU/mL (NOT DETECTED)
== END ==
LOC: M PLALAB 09:30
PROVIDERS: ATTEND Internal Medicine Infectious Disease
DX: B18.2 Chronic viral hepatitis C (principal)

== ENCOUNTER → 2023-11-20 | Outpatient (CLI) | payer OTHER ==
[2023-11-20 10:50] LABS: HEMATOCRIT 43.3 % (36.0-47.0); HEMOGLOBIN 14.5 g/dl (12.0-15.5); MEAN CORPUSCULAR HGB CONC 33.5 g/dl (32.0-36.5); MEAN CORPUSCULAR VOLUME 89.5 fl (80.0-96.0); PLATELET COUNT, AUTOMATED 283 10^3/uL (150-450); RED BLOOD COUNT 4.84 10^6/uL (4.00-5.40); WHITE BLOOD COUNT 6.4 10^3/uL (4.0-10.0)
[2023-11-20 10:57] LABS: ERYTHROCYTE SEDIMENTATION RATE 15 mm/hr (0-20)
[2023-11-20 11:14] LABS: C REACTIVE PROTEIN QUANTITATIV < 0.40 MG/DL (<1.0)
[2023-11-20 11:15] LABS: ALKALINE PHOSPHATASE 45 U/L (46-116); ALT/SGPT 11 U/L (7.0-40); AST/SGOT 15 U/L (<34); BILIRUBIN,TOTAL 1.1 MG/DL (0.3-1.2); BLOOD UREA NITROGEN 9 MG/DL (9-23); CARBON DIOXIDE LEVEL 23 MMOL/L (20-31); CHLORIDE LEVEL 108 MMOL/L (98-107); CREATININE FOR GFR 0.81 MG/DL (0.55-1.30); GLOMERULAR FILTRATION RATE > 60.0 (>60); GLUCOSE, FASTING 127 MG/DL (60-100); POTASSIUM SERUM 4.2 MMOL/L (3.5-5.1); SODIUM LEVEL 137 MMOL/L (136-145)
== END ==
LOC: M LAB 09:32
PROVIDERS: ATTEND Internal Medicine Rheumatology
DX: M05.9 Rheumatoid arthritis with rheumatoid factor, unspecified (principal)

== ENCOUNTER → 2024-01-05 | Outpatient (REF) | payer OTHER | LOC: M LAB REF 17:20 | PROVIDERS: ATTEND Nurse Practitioner Family | DX: E03.9 Hypothyroidism, unspecified (principal) ==

== ENCOUNTER 2024-04-19 10:33 | Day surgery (SDC) | payer OTHER ==
[~2024-04-19] VITALS: Ht 170.2 cm; Wt 111.1 kg
[~2024-04-19 10:33] MED LIST changes: +HYDR200T46 PO; +IBUP80TA; +LEVO25TA5 PO; +PRED5TA PO
[2024-04-19 11:08] LABS: HEMATOCRIT 45.2 % (36.0-47.0); HEMOGLOBIN 15.1 g/dl (12.0-15.5); MEAN CORPUSCULAR HEMOGLOBIN 30.3 pg (27.0-33.0); MEAN CORPUSCULAR HGB CONC 33.4 g/dl (32.0-36.5); MEAN CORPUSCULAR VOLUME 90.6 fl (80.0-96.0); PLATELET COUNT, AUTOMATED 290 10^3/uL (150-450); RED BLOOD COUNT 4.99 10^6/uL (4.00-5.40); WHITE BLOOD COUNT 8.3 10^3/uL (4.0-10.0)
[2024-04-19] MEDS ORDERED: LR 1,000 ML IV SCH (11:30)
[2024-04-19] MEDS ORDERED: LIDOCAINE 2% 100MG/5ML SDV (FOR ANES.) As Ordered ONE (11:31)
[2024-04-19] MEDS ORDERED: fentaNYL 250 MCG/5 ML INJECTION As Ordered ONE (11:31)
[2024-04-19] MEDS ORDERED: ROCURONIUM BROMIDE 50MG/5ML VIAL As Ordered ONE (11:31)
[2024-04-19] MEDS ORDERED: dexmedeTOMIDine (4MCG/ML)200MCG/50ML BTL (PRECEDEX) As Ordered ONE (11:31)
[2024-04-19] MEDS ORDERED: METOCLOPRAMIDE INJ 10MG/2ML VIAL As Ordered ONE (11:31)
[2024-04-19] MEDS ORDERED: ONDANSETRON 4MG 2ML VIAL As Ordered ONE (11:31)
[2024-04-19] MEDS ORDERED: MIDAZOLAM INJ 2MG/2ML VIAL As Ordered ONE (11:31)
[2024-04-19] MEDS ORDERED: KETOROLAC 60MG 2ML VIAL As Ordered ONE (11:31)
[2024-04-19] MEDS ORDERED: SUGAMMADEX SODIUM 500 MG/5 ML VIAL (BRIDION) As Ordered ONE (11:31)
[2024-04-19] MEDS ORDERED: propofoL 200 MG/20 ML VIAL As Ordered ONE (11:31)
[2024-04-19] MEDS ORDERED: HYDROmorphone HCL 2MG/ML 1ML VIAL As Ordered ONE (11:31)
[2024-04-19] MEDS ORDERED: GLYCOPYRROLATE INJ 0.2 MG/ML 2 ML VIAL As Ordered ONE (12:29)
[2024-04-19] MEDS: ceFAZolin SOD 2 GM in IV 1 EA IV ONE (12:58)
[2024-04-19] MEDS: METHYLENE BLUE 0.5% (5MG/ML) 10 ML AMP (PROVAYBLUE) As Ordered ONE (13:21)
[2024-04-19] MEDS ORDERED: fentaNYL 100 MCG/2 ML INJECTION IV PRN (14:00)
[2024-04-19] MEDS ORDERED: ONDANSETRON 4MG 2ML VIAL IV PRN ×2 (14:00→14:15)
[2024-04-19] MEDS ORDERED: MORPHINE 4 MG/ML 1ML VIAL IV PRN (14:20)
[2024-04-19] MEDS ORDERED: PERCOCET 5MG/325MG TAB PO PRN ×2 (14:20)
[2024-04-19] MEDS ORDERED: PERCOCET PO (14:25)
[2024-04-19] MEDS ORDERED: IBUP80TA PO (14:25)
[2024-04-19] MEDS ORDERED: COLA100C5 PO (14:25)
[2024-04-19] MEDS: HYDROMORPHONE HCL 0.5 MG/ 0.5 ML SYRINGE IV PRN (14:38)
[2024-04-19] MEDS: oxyCODONE 5MG TAB PO PRN (14:38)
[2024-04-19] MEDS: LR 1,000 ML IV SCH (14:39)
[2024-04-19 15:40] VITALS: BP 109/56; TEMP 97.5; O2SAT 98
[2024-04-19 16:10] VITALS: BP 105/80; TEMP 97.5; O2SAT 97
[2024-04-19] MEDS ORDERED: KETOROLAC 30 MG/ML 1ML VIAL IV SCH (20:00)
[2024-04-19] MEDS ORDERED: DOCUSATE SODIUM 100MG CAPSULE PO SCH (21:00)
[2024-04-20] MEDS ORDERED: IBUPROFEN 800 MG TAB PO SCH (16:00)
== END 2024-04-19 17:55 | disposition home or self-care (01) ==
LOC: M SDC 10:33 → M RR INP 10:34 → UNDOADMOB 10:34 → M OBS 15:31 → M RR INP 15:31 → M SDC 17:55 → UNDODISOB 17:55
PROVIDERS: ATTEND Obstetrics & Gynecology
DX: N88.8 Other specified noninflammatory disorders of cervix uteri (principal); N93.9 Abnormal uterine and vaginal bleeding, unspecified; R10.2 Pelvic and perineal pain; E03.9 Hypothyroidism, unspecified; M06.9 Rheumatoid arthritis, unspecified; J30.1 Allergic rhinitis due to pollen; J30.89 Other allergic rhinitis; F17.290 Nicotine dependence, other tobacco product, uncomplicated
CPT/HCPCS: 36415; 58571; 81025; 85027; 86850; 86900; 86901; 88307; J0665; J0690; J1100; J1171; J1596; J1885; J2250; J2405; J2765; J3010; Q9968; S2900

== ENCOUNTER → 2024-04-29 | Outpatient (CLI) | payer OTHER ==
[~2024-04-29] MED LIST changes: +COLA100C5 PO; +PERCOCET PO
[2024-04-29 10:17] LABS: HEMATOCRIT 43.3 % (36.0-47.0); HEMOGLOBIN 14.5 g/dl (12.0-15.5); MEAN CORPUSCULAR HEMOGLOBIN 30.8 pg (27.0-33.0); MEAN CORPUSCULAR HGB CONC 33.5 g/dl (32.0-36.5); MEAN CORPUSCULAR VOLUME 91.9 fl (80.0-96.0); PLATELET COUNT, AUTOMATED 305 10^3/uL (150-450); RED BLOOD COUNT 4.71 10^6/uL (4.00-5.40); WHITE BLOOD COUNT 8.8 10^3/uL (4.0-10.0)
[2024-04-29 10:22] LABS: ERYTHROCYTE SEDIMENTATION RATE 17 mm/hr (0-20)
[2024-04-29 10:48] LABS: ALBUMIN 3.6 G/DL (3.2-5.2); ALKALINE PHOSPHATASE 44 U/L (35-104); ALT/SGPT 10 U/L (7.0-40); AST/SGOT 8 U/L (<34); BILIRUBIN,TOTAL 0.9 MG/DL (0.3-1.2); BLOOD UREA NITROGEN 15 MG/DL (9-23); C REACTIVE PROTEIN QUANTITATIV < 0.50 MG/DL (<1.0); CARBON DIOXIDE LEVEL 24 MMOL/L (20-31); CHLORIDE LEVEL 106 MMOL/L (98-107); CREATININE FOR GFR 0.79 MG/DL (0.55-1.30); GLOMERULAR FILTRATION RATE > 60.0 (>60); GLUCOSE, FASTING 108 MG/DL (60-100); POTASSIUM SERUM 4.2 MMOL/L (3.5-5.1); SODIUM LEVEL 140 MMOL/L (136-145); TOTAL PROTEIN 6.8 G/DL (5.7-8.2)
== END ==
LOC: M LAB 09:46
PROVIDERS: ATTEND Internal Medicine Rheumatology
DX: M05.9 Rheumatoid arthritis with rheumatoid factor, unspecified (principal)

== ENCOUNTER → 2025-02-10 | Outpatient (CLI) | payer OTHER ==
[~2025-02-10] MED LIST changes: -IBUP-1022 PO; +IBUP600T42 PO; +LIDO1ADH93 TD; -LIDO5DIS41 TD
[2025-02-10 10:04] LABS: BASO # 0.1 10^3/uL (0.0-0.2); BASO % 1.3 % (0.0-1.0); EOS # 0.3 10^3/uL (0.0-0.5); EOS % 3.4 % (0.0-3.0); LYMPH # 2.1 10^3/uL (1.5-5.0); LYMPH % 26.1 % (24.0-44.0); MONO # 0.5 10^3/uL (0.0-0.8); MONO % 6.3 % (2.0-8.0); NEUTROPHILS # 4.9 10^3/uL (1.5-8.5); NEUTROPHILS % 62.6 % (36.0-66.0); PLATELET COUNT, AUTOMATED 285 10^3/uL (150-450)
[2025-02-10 10:29] LABS: ALT/SGPT 10 U/L (7.0-40); AST/SGOT 13 U/L (<34); C REACTIVE PROTEIN QUANTITATIV < 0.50 MG/DL (<1.0); CALCIUM LEVEL 9.1 MG/DL (8.5-10.1); CARBON DIOXIDE LEVEL 26 MMOL/L (20-31); CHLORIDE LEVEL 107 MMOL/L (98-107); CREATININE FOR GFR 0.90 MG/DL (0.55-1.30); GLOMERULAR FILTRATION RATE 83.4 (>60); POTASSIUM SERUM 4.4 MMOL/L (3.5-5.1); SODIUM LEVEL 138 MMOL/L (136-145)
== END ==
LOC: M LAB 09:00
PROVIDERS: ATTEND Internal Medicine Rheumatology
DX: M05.9 Rheumatoid arthritis with rheumatoid factor, unspecified (principal); E03.9 Hypothyroidism, unspecified; Z86.19 Personal history of other infectious and parasitic diseases; Z79.52 Long term (current) use of systemic steroids; Z86.59 Personal history of other mental and behavioral disorders

== ENCOUNTER → 2025-02-17 | Outpatient (REF) | payer OTHER | LOC: M LAB REF 10:39 | PROVIDERS: ATTEND Internal Medicine Rheumatology | DX: M05.9 Rheumatoid arthritis with rheumatoid factor, unspecified (principal); Z86.19 Personal history of other infectious and parasitic diseases; E03.9 Hypothyroidism, unspecified; Z79.52 Long term (current) use of systemic steroids; Z86.59 Personal history of other mental and behavioral disorders ==

== ENCOUNTER → 2025-02-18 | Outpatient (REF) | payer OTHER | LOC: M LAB REF 16:25 | PROVIDERS: ATTEND Nurse Practitioner Family | DX: E03.9 Hypothyroidism, unspecified (principal) ==